=== PATIENT | male | born 1945 | race Caucasian/White ===

== ENCOUNTER 2022-05-06 13:31 | Outpatient (CLI) | payer OTHER | END 2022-05-06 13:32 | disposition home or self-care (01) | LOC: CSHMRI 13:31 | PROVIDERS: ATTEND Surgery | DX: G82.20 Paraplegia, unspecified (principal); M79.89 Other specified soft tissue disorders; G95.9 Disease of spinal cord, unspecified | CPT/HCPCS: 72141; 72146; 72148 ==